=== PATIENT | male | born 1970 | race Caucasian/White ===

== ENCOUNTER → 2017-12-08 | Outpatient (CLI) | payer OTHER ==
--- NOTE | 2017-12-08 10:52 | Diagnostic Imaging Report ---
EXAMINATION: Ultrasound scrotum INDICATION: Left sided pain There are no prior studies available for comparison. Spectral and color flow imaging of the testicles was performed. Both testicles were identified. Right testicle measures 4.7 x 2.3 x 3.5 cm, while the left testicle is estimated to be 3.9 x 2.2 x 3.0 cm. There is no evidence for a solid testicular mass or for a torsion. The epididymis on the left is prominent and slightly hyperemic. I suspect that there is an element of the epididymitis present. There is no evidence for epididymitis on the right. There is no hydrocele or varicocele formation. IMPRESSION: 1. The epididymis on the left is prominent and slightly hyperemic compared to the right. Most likely there is an element of epididymitis present on the left. 2. No other acute [place] identified. 3. There is no testicular mass or torsion identified. Report Dictated on workstation # [id number]
== END ==
LOC: RAD 09:15
PROVIDERS: ATTEND Internal Medicine
DX: N50.812 Left testicular pain (principal)
CPT/HCPCS: 76870